=== PATIENT | female | born 1995 | race Two or more races ===

== ENCOUNTER 2024-11-14 18:17 | Emergency (ER) | payer MEDICAID, SELFPAY ==
[2024-11-14 18:43] VITALS: BP 113/77; PULSE 62; RESP 16; TEMP 37.1; O2SAT 99; BMI 38.0
--- NOTE | 2024-11-14 19:02 | PD.EDABDPN ---
ED Abdominal Pain RME/HPI General Chief Complaint: Abdominal Pain Stated complaint: CONTINUOUS RLQ ABD PAIN X MON Time seen by provider: 11/14/24 18:27 Arrival date/time: 11/14/24 18:17 Source: patient, RN notes reviewed and old records reviewed Mode of arrival: ambulatory Limitations: no limitations RME / HPI RME / HPI narrative: 29yof presents to ED for 3-day history of RLQ abdominal pain, worse with movement and ambulation. No fever, N/V/D or urinary symptoms reported. Patient has taken Tylenol without relief. Denies history of ovarian cysts or fibroids. Related Data Home Medications ?Medication ?Instructions ?Recorded ?Confirmed vits [id number] 1 tab PO QDAY 04/05/22 11/19/22 27 mg iron-folic acid 800 mcg tablet ( Vitamin) albuterol 90 mcg/actuation aerosol 90 mcg inhalation PRN PRN 11/10/22 11/10/22 inhaler Bronchodilation Previous Rx's ?Medication ?Instructions ?Recorded docusate sodium 100 mg capsule 100 mg PO BID #60 caps 11/19/22 (Colace) ibuprofen 800 mg tablet 800 mg PO Q6H PRN pain #90 tabs 11/19/22 lanolin 50 % topical ointment 1 applic topical TID PRN skin 11/19/22 irritation #15 tubes apixaban 2.5 mg tablet (Eliquis) 2.5 mg PO BID DVT prophylaxis #42 11/25/22 tabs hydrocodone 5 mg-acetaminophen 325 1 tab PO Q4H PRN pain #30 tabs 11/25/22 mg tablet meclizine 25 mg tablet 25 mg PO QDAY PRN dizziness #14 05/31/24 tabs ibuprofen 600 mg tablet 600 mg PO Q6H PRN fever or pain 11/14/24 #30 tabs nitrofurantoin 100 mg PO BID 5 days #10 caps 11/14/24 monohydrate/macrocrystals 100 mg capsule (Macrobid) Allergies Allergy/AdvReac Type Severity Reaction Status Date / Time Iodinated Contrast Media Allergy Mild Palpitation Verified 11/14/24 18:19 s Review of Systems Review of Systems Systems Reviewed: All systems reviewed, normal except as documented Constitutional Constitutional: Denies chills and Denies fever(s) Gastrointestinal Gastrointestinal: Reports abdominal pain, Denies loose stools, Denies nausea and Denies vomiting Genitourinary Genitourinary: Denies dysuria, Denies flank pain and Denies hematuria Past Medical History Past Medical History RESPIRATORY: Positive Asthma GASTROINTESTINAL: Positive Gastroesophageal Reflux Disease and Obesity REPRODUCTIVE: Positive Previous Pregnancies PSYCHO/SOCIAL: Positive Anxiety (No meds) Social History SMOKING STATUS: Never smoker SUBSTANCE USE: does not use ALCOHOL: Never ED Exam General Limitations: Present no limitations General appearance: Present alert, in no apparent distress and obese Head Head exam: Present atraumatic and normocephalic Eye Eye exam: Present normal appearance, PERRL and EOMI ENT ENT exam: Present normal exam and mucous membranes moist Neck Neck exam: Present normal inspection and full ROM Chest Chest inspection: Present normal inspection and symmetric chest wall rise Respiratory Respiratory exam: Present normal lung sounds bilaterally; Absent respiratory distress Cardiovascular Cardiovascular exam: Present regular rate and normal rhythm Abdominal Exam Abdominal exam: Present soft and tenderness (RLQ, mild); Absent distention, guarding or rebound Extremities Exam Extremities exam: Present normal inspection and full ROM Back Exam Back exam: Absent CVA tenderness (R) or CVA tenderness (L) Neurological Exam Neurological exam: Present alert and oriented X3 Psychiatric Psychiatric exam: Present normal affect and normal mood Skin Skin exam: Present warm, dry, intact and normal color Course Quality Measures none Orders Category Date Time Status CT abdomen pelvis wo con Stat Exams 11/14/24 20:51 Completed CBC Stat Lab 11/14/24 19:20 Completed CMP [Comprehensive Metabolic Panel] Stat Lab 11/14/24 19:20 Completed HCG Qualitative,Urine Stat Lab 11/14/24 20:01 Completed Lipase Stat Lab 11/14/24 19:20 Completed UA [Urinalysis] Stat Lab 11/14/24 20:01 Completed Vital Signs Vital signs: Vital Signs Temperature 98.7 F 11/14/24 18:43 Pulse Rate 62 11/14/24 18:43 Respiratory Rate 16 11/14/24 18:43 Blood Pressure 113/77 11/14/24 18:43 Pulse Oximetry (%) 99 11/14/24 18:43 Oxygen Delivery Method Room Air 11/14/24 18:43 Abdominal Pain MDM MDM Narrative MDM Narrative:: 29yof presents to ED for 3-day history of RLQ abdominal pain, worse with movement and ambulation. No fever, N/V/D or urinary symptoms reported. Patient has taken Tylenol without relief. Denies history of ovarian cysts or fibroids. Will treat for UTI. No evidence of appendicitis. Patient is nontoxic-appearing, vitals are stable. Nonsurgical abdomen on exam. Encouraged adequate fluids, symptomatic treatment prn. Stable for discharge, RTED precautions given. Patient data External records reviewed:: [facility] previous records (05/31/2024 ED visit for vertigo) Clinical information provided by:: patient Social determinants that could affect healthcare access:: other (specify) (Poor access to healthcare) Patient has the following chronic illnesses:: obesity, GERD, anxiety How is presenting disease/condition affected by chronic disease/condition?: uneffected by Evaluation data The following diagnostics were reviewed and interpreted by me:: lab results and radiology exam(s) Lab and/or radiology exams considered but not ordered:: none Interpretation Summary: WBC 7 Negative upreg UA +leuks, +blood CT abd/pelvis: no acute process Medications / Prescriptions Medications or Prescriptions considered but not ordered:: None Medication administrations:: None Consultations Consultation(s) initiated? (list below): No Diagnosis Differential diagnosis abdominal pain: other (Appendicitis, mesenteric adenitis, UTI, kidney stone, ovarian cyst, uterine fibroid, constipation) Most likely diagnosis given after review of the tests above:: UTI Admission Indicated Admission indicated?: not indicated Admission Request Was there a request for admission?: No Disposition Plan Disposition Plan: Discharge Discharge Attestation Discharge Attestation: The patient and all family members were given an opportunity to ask questions and understood the discharge instructions. Discharge instructions specifically effects, indications for sooner follow up or return to the emergency department, and the expected course of current diagnosis. Patient condition: Stable Discharge Plan Plan Patient Disposition: HOME (Self Care) Patient condition on transfer: Stable Prescriptions/Referrals Prescriptions/Med Rec: New nitrofurantoin monohyd/m-cryst [Macrobid] 100 mg capsule 100 mg PO BID 5 Days Qty: 10 0RF Rx Instructions: must administer with a meal/food ibuprofen 600 mg tablet 600 mg PO Q6H PRN (Reason: fever or pain) Qty: 30 0RF No Action Vitamin 27 mg iron- 800 mcg Tablet 1 tab PO QDAY ibuprofen 800 mg tablet 800 mg PO Q6H MDD 4 PRN (Reason: pain) Qty: 90 0RF docusate sodium [Colace] 100 mg capsule 100 mg PO BID Qty: 60 0RF lanolin 50 % ointment 1 applic topical TID PRN (Reason: skin irritation) Qty: 15 0RF hydrocodone-acetaminophen 5-325 mg tablet 1 tab PO Q4H MDD 4 PRN (Reason: pain) Qty: 30 0RF Eliquis 2.5 mg tablet 2.5 mg PO BID Qty: 42 0RF meclizine 25 mg tablet 25 mg PO QDAY PRN (Reason: dizziness) Qty: 14 0RF albuterol 90 mcg/actuation Aerosol 90 mcg INHALATION PRN PRN (Reason: Bronchodilation) Referrals: Ludivina Chapin FNP [Primary Care Provider] - In 1 week Problem List Clinical Impression: UTI (urinary tract infection), Abdominal pain, RLQ Patient/Caregiver Discharge Instructions Education Materials: Urinary Tract Infections in Women Print Language: Mal[place]ian Stand Alone Forms: Arianna Award Info., Work/School Release, Patient Portal Info Letter PA/A&P MECHANIC Supervising Physician LUPE/A&P MECHANIC Supervising Physician: Luis Miguel
[2024-11-14 20:00] LABS: Basophils % (Auto) 0 % (0-2.5); Eosinophils # (Auto) 0.1 Thou/mm3 (0.0-0.5); Eosinophils % (Auto) 1 % (0-10); Hematocrit 38.6 % (36.0-46.0); Immature Granulocytes % (Auto) 0 % (0-0); Immature Granulocytes Auto 0.02 Thou/mm3 (0.00-0.00); Lymphocytes # (Auto) 2.1 Thou/mm3 (1.0-4.8); Lymphocytes % (Auto) 30 % (10-50); Mean Corpuscular HGB Conc 33.7 g/dl (31.0-37.0); Mean Corpuscular Hemoglobin 29.3 pg (25.0-35.0); Mean Corpuscular Volume 87 fL (80-100); Monocytes # (Auto) 0.6 Thou/mm3 (0.0-0.8); Monocytes % (Auto) 9 % (0-12); Neutrophils # (Auto) 4.1 Thou/mm3 (1.8-7.7); Neutrophils % (Auto) 59 % (37-80); Nucleated Red Blood Cell % 0 /100 WBC (0); Platelet Count 326 Thou/mm3 (140-440); RDW Standard Deviation 41.1 fL (36.4-46.3); Red Blood Count 4.44 Miln/mm3 (4.00-5.20)
[2024-11-14 20:09] LABS: Collection Type, Urine Clean Catch
[2024-11-14 20:16] LABS: Bilirubin,Urine Negative (Negative); Blood,Urine 1+ (Negative); Clarity,Urine Clear (Clear/Hazy); Color,Urine Colorless (Lt Yel-Yel); Glucose, Urine Negative (Negative); Ketones,Urine Negative (Negative); Leukocyte Esterase,Urine Positive (Negative); Nitrite,Urine Negative (Negative); PH,Urine 6.5 (5.0-7.0); Protein,Urine Negative (Neg - Trace); RBC,Urine 4 /hpf (0-3); Specific Gravity,Urine 1.013 (1.001-1.035); Squamous Epithelial Cell,Urine 3 /hpf (0-5); Urobilinogen,Urine Negative mg/dL (0.0-1.0); WBC,Urine 4 /hpf (0-5)
[2024-11-14 20:28] LABS: HCG Qualitative,Urine Negative
[2024-11-14 20:38] LABS: Alanine Aminotransferase 17 U/L (10-49); Albumin, Serum 4.7 gm/dL (3.5-5.0); Albumin/Globulin Ratio 1.7 (1.2-2.2); Alkaline Phosphatase 67 U/L (46-116); Anion Gap 9 (7-16); Aspartate Amino Transferase 14 U/L (0-34); BUN/Creatinine Ratio 16 Ratio (12-20); Bilirubin,Total 0.5 mg/dL (0.3-1.2); Blood Urea Nitrogen 13 mg/dL (9-23); Calcium 9.5 mg/dL (8.3-10.6); Calcium (Corrected) 9.5 mg/dL (8.5-10.1); Chloride 105 mMol/L (98-107); Creatinine (Component) 0.8 mg/dL (0.6-1.3); Estimated Creatinine Clearance 113.3 mL/min (>60); Globulin 2.8 gm/dL (2.3-3.5); Glucose 91 mg/dL (74-106); Lipase 29 U/L (12-53); Osmolality,Calculated 277 (275-295); Potassium 3.8 mMol/L (3.4-5.1); Sodium 139 mMol/L (136-145); Total Protein 7.5 gm/dL (5.7-8.2); eGFR > 60 See Note
--- NOTE | 2024-11-14 20:51 | XR_ITS ---
Examination: CT abdomen and pelvis without contrast. Coronal 3-D reconstructions. Sagittal 2-D reconstructions. Date and time of exam:November 14, 20242024 hrs. Indications: Onset right lower abdominal pain today Comparison: December 22, 2022 CTDI: vol (mGy): 11.4 DLP: (mGycm): 648 Technique: Axial images of the abdomen have been obtained, 3 mm slice thickness Intravenous contrast material has not been administered. Low dose protocols were performed. One or more of the following dose reduction techniques were used; automated exposure control, adjustment of the mA and/or KV according to patient size, use of iterative reconstruction technique. Findings: No focal liver or splenic lesions No gallstones No pancreatic or adrenal mass No renal or ureteral calculi, no hydronephrosis Normal appendix 20 mm fat-containing umbilical hernia No bowel obstruction No diverticulitis Retroverted uterus No adnexal mass Urinary bladder intact Separation of the symphysis, please see the CT pelvis report December 22, 2022 Impression: Normal appendix No acute process in the abdomen or pelvis
[2024-11-14 22:13] VITALS: RESP 18
== END 2024-11-14 22:14 | disposition home or self-care (01) ==
PROVIDERS: Physician Assistant; Emergency Provider Emergency Medicine; PCP Nurse Practitioner Family
DX: N39.0 Urinary tract infection, site not specified (principal)
CPT/HCPCS: 36415; 74176; 80053; 81001; 81025; 83690; 85025; 99284